=== PATIENT | male | born 1960 | race Caucasian/White ===

== ENCOUNTER → 2016-07-09 | Day surgery (SDC) | payer MEDICARE ==
[~2016-07-09] MED LIST: ADVAIR 2501 DISK W/D PO; ALBUTEROL17 GM; ALBUTEROL17 GM INH; ALLEGRA; ALLEGRA180 MG PO; ALPRAZOLAM0.25 M1 PO; ALPRAZOLAM0.25 MG PO; AMARYL2 MG PO; ARTHROTEC 501 TAB.EC; ASPIRIN81 M1 PO; ASPIRIN81 M2 PO; ASPIRINBUFF; ASPIRINEC; DARVOCET-N 1001 TAB; ETODOLAC500 MG PO; FLONASE 0.05% N16 G1; GLUCOPHAGE500 MG PO; LIDODERM30 EA TOP; LIPITOR; LIPITOR40 MG PO; LIPITOR80 MG PO; LODINE; METFORMIN HCL500 M2 PO; METOPROLOL SUCC50 MG PO; MONTELUKAST SOD10 MG PO; MORPHINE SULFAT30 M5 PO; MUCINEX PO; NEXIUM; NITROSTAT0.4 MG SL; ORAMORPH SR30 MG PO; PERCOCET5/325; PLAVIX; PREDNISONE10 MG PO; PROAIR HFA8.5 GM INH; RANEXA1000 MG PO; TOPROL XL; TOPROL XL 50 MG50 MG PO; VICOPROFEN 200-1 TAB; VOLTAREN75 MG PO; ZANAFLEX4 M1 PO; ZANTAC; ZETIA; ZYRTEC10 M1 PO
--- NOTE | ~2016-07-09 | OR ---
Unit #: [id number] #: [id number] Patient: WARREN BLUE [id number] [address] [address] [id number] O MR#: [id number] NAME: WARREN BLUE ROOM: Date of Procedure: 07/09/2016 Admission Date: 07/09/2016 Surgeon: Taiwo Turner M.D. : 1960 Attending Physician: Taiwo Turner M.D. Primary Care Physician: Fernando Blackburn M.D. PROCEDURE OPERATIVE NOTE PREOPERATIVE DIAGNOSIS Back pain, radiculopathy, post lumbar fusion, degenerative disc disease, degenerative facet disease. POSTOPERATIVE DIAGNOSIS Back pain, radiculopathy, post lumbar fusion, degenerative disc disease, degenerative facet disease. PROCEDURE PERFORMED Lumbar epidural steroid injection with intravenous sedation under fluoroscopic guidance for needle localization. HISTORY This is a 55-year-old male status post L5-S1 fusion for spondylolisthesis. He did very well with this. He has significant adjacent level disease, multifactorial, multi-level with back pain and intermittent radiculopathy. He (1) chronic issues associated with his fusion. Plans are for a trial of epidural steroids to settle this subacute and chronic flare of his back and leg pains now. PROCEDURE The patient was placed in a seated position. Standard monitors were applied. 2 mg of versed were given for sedation and anxiolysis which were adequate. Vital signs remained stable. Sterile prep and drape then of the lumbar area was performed. The skin then at the L3 level was localized with 1% lidocaine. An 18-gauge Hustead needle was then advanced via loss of resistance technique and fluoroscopic guidance in toward the epidural space. After confirming proper positioning with fluoroscopy and radiographic contrast, 80 mg of Depo-Medrol and 6 mL of 0.125% bupivacaine were deposited. The patient tolerated the procedure otherwise well and was discharged to the recovery room in stable condition. Dictated by... Judd Hickman/lara TD: 07/09/2016 12:08 JOB #: [id number] Unit #: [id number] #: [id number] Patient: WARREN BLUE CC: Rosalio Cain M.D. PROCEDURE OPERATIVE NOTE Page 1 of 1 X Taiwo Turner MD X PROCEDURE OPERATIVE NOTE
== END | disposition home or self-care (01) ==
LOC: CCSC 08:46
DX: M51.16 Intervertebral disc disorders with radiculopathy, lumbar region (principal); M53.86 Other specified dorsopathies, lumbar region; J44.9 Chronic obstructive pulmonary disease, unspecified; I25.10 Atherosclerotic heart disease of native coronary artery without angina pectoris; E11.9 Type 2 diabetes mellitus without complications; K21.9 Gastro-esophageal reflux disease without esophagitis; I10 Essential (primary) hypertension; I73.9 Peripheral vascular disease, unspecified; Z86.2 Personal history of diseases of the blood and blood-forming organs and certain disorders involving the immune mechanism; Z98.1 Arthrodesis status
CPT/HCPCS: 82947; J1040; J2250

== ENCOUNTER → 2016-07-23 | Day surgery (SDC) | payer MEDICARE ==
--- NOTE | ~2016-07-23 | OR ---
Unit #: [id number] #: [id number] Patient: WARREN BLUE [id number] [address] [place], [place] [address] [id number] O MR#: [id number] NAME: WARREN BLUE ROOM: Date of Procedure: 07/23/2016 Admission Date: 07/23/2016 Surgeon: Taiwo Turner M.D. : 1960 Attending Physician: Taiwo Turner M.D. Primary Care Physician: Fernando Blackburn M.D. OPERATIVE REPORT JOB NOTE: CC: [facility] PREOPERATIVE DIAGNOSES Back pain, radiculopathy, postlumbar fusion, degenerative disk disease. POSTOPERATIVE DIAGNOSES Back pain, radiculopathy, postlumbar fusion, degenerative disk disease. PROCEDURE PERFORMED Lumbar epidural steroid injection with intravenous sedation and fluoroscopic guidance for needle localization. INDICATIONS FOR PROCEDURE The patient is a 55-year-old male with worsening back and intermittent lower extremity pain. He is status post extensive fusion and decompression. He has multilevel degenerative disk disease and spondylolisthesis. He was treated medically and was last treated with a trial of epidural steroids, re-flare of this pain 2 weeks ago. This resulted in 50% settling of his symptom complex. Based on his good partial response, his pathology, and symptomatology, we are going to proceed with a repeat epidural steroid injection today. DESCRIPTION OF PROCEDURE The patient was placed in the seated position. Standard monitors were applied. 2 mg of Versed were given for sedation and anxiolysis, which were adequate. Vital signs remained stable. Sterile prep and drape then of the lumbar area was performed. The skin then at the L3 level was localized with 1% lidocaine. An 18-gauge AutoMoneyBacktead needle was then advanced via loss of resistance technique and fluoroscopic guidance in toward the epidural space. After confirming proper positioning with fluoroscopy and radiographic contrast, 80 mg of Depo-Medrol and 6 mL of 0.5% lidocaine were deposited. The patient tolerated the procedure otherwise well and was discharged to recovery room in stable condition. Dictated by... Taiwo uTrner M.D. LHP/modl TD: 07/24/2016 00:50 JOB #: [id number] Unit #: [id number] #: [id number] Patient: WARREN BLUE OPERATIVE REPORT Page 1 of 1 X Taiwo Turner MD X PROCEDURE OPERATIVE NOTE
== END | disposition home or self-care (01) ==
LOC: CCSC 08:59
DX: M51.16 Intervertebral disc disorders with radiculopathy, lumbar region (principal); M43.16 Spondylolisthesis, lumbar region; Z98.1 Arthrodesis status; J44.9 Chronic obstructive pulmonary disease, unspecified; I25.10 Atherosclerotic heart disease of native coronary artery without angina pectoris; E11.9 Type 2 diabetes mellitus without complications; K21.9 Gastro-esophageal reflux disease without esophagitis; I73.9 Peripheral vascular disease, unspecified
CPT/HCPCS: 82947; J1040; J2250

== ENCOUNTER → 2016-10-03 | Day surgery (SDC) | payer MEDICARE ==
--- NOTE | ~2016-10-03 | OR ---
Unit #: [id number] #: [id number] Patient: WARREN BLUE [id number] [address] [place], [place] [address] [id number] O MR#: [id number] NAME: WARREN BLUE ROOM: Date of Procedure: 10/03/2016 Admission Date: 10/03/2016 Surgeon: Taiwo Turner M.D. : 1960 Attending Physician: Taiwo Turner M.D. Primary Care Physician: Fernando Blackburn M.D. OPERATIVE REPORT JOB NOTE: CC: [facility]. PREOPERATIVE DIAGNOSES Back pain, radiculopathy, degenerative disk disease, degenerative facet disease, post lumbar fusion. POSTOPERATIVE DIAGNOSES Back pain, radiculopathy, degenerative disk disease, degenerative facet disease, post lumbar fusion. PROCEDURE PERFORMED Diagnostic and therapeutic bilateral L2-L3, L3-L4, and L4-L5 facet injections with intravenous sedation and fluoroscopic guidance for needle localization. INDICATIONS FOR PROCEDURE The patient is a 55-year-old male, status post lumbar fusion resolved at L5-S1 level. He has adjacent level disk and spine disease. He was given a trial of epidural steroids a few months ago resulted in some maintained improvement. Question as to whether or not some amount of this pain is due to the facet pathology. The plan is for trial of facet injections at those levels. DESCRIPTION OF PROCEDURE The patient was placed in a prone position. Standard monitors were applied. 2 mg of Versed were given for sedation and anxiolysis, which were adequate. Vital signs remained stable. Sterile prep and drape then of the lumbosacral area was performed. The skin then to the left of midline overlying the left L2-L3, L3-L4, L4-L5 facet joints were localized with 1% lidocaine. A 22-gauge Quincke point spinal needle was then advanced with fluoroscopic guidance to bring the needle tip to within the respective facet joints. After confirming proper positioning with fluoroscopy, dose of 1 mL of a mixture of 80 mg of Depo-Medrol and 2 mL of 0.25% bupivacaine were deposited. The needles were flushed at all these levels and removed. The exact same procedure was then repeated on the right at the L2-L3, L3-L4, L4-L5 levels. Again after confirming proper needle tip positioning within those respective facet joints, a dose of 1 mL of a mixture of 80 mg of Depo-Medrol and 2 mL of 0.25% bupivacaine were deposited. The patient tolerated the procedure well and was discharged to the recovery room in stable condition. Unit #: [id number] #: [id number] Patient: WARREN BLUE Dictated by... Judd Hickman/reji TD: 10/03/2016 11:47 JOB #: [id number] CC: Rosalio Cain M.D. OPERATIVE REPORT Page 1 of 1 X Taiwo Turner MD X PROCEDURE OPERATIVE NOTE
== END | disposition home or self-care (01) ==
LOC: CCSC 08:02
DX: M47.26 Other spondylosis with radiculopathy, lumbar region (principal); M51.16 Intervertebral disc disorders with radiculopathy, lumbar region; M53.86 Other specified dorsopathies, lumbar region; I25.10 Atherosclerotic heart disease of native coronary artery without angina pectoris; E11.9 Type 2 diabetes mellitus without complications; I10 Essential (primary) hypertension; J44.9 Chronic obstructive pulmonary disease, unspecified; K21.9 Gastro-esophageal reflux disease without esophagitis; Z98.1 Arthrodesis status
CPT/HCPCS: 82947; J1040; J2250